=== PATIENT | male | born 1955 | race Caucasian/White ===

== ENCOUNTER → 2017-09-22 14:31 | Outpatient (CLI) | payer OTHER, MEDICAID, SELFPAY ==
--- NOTE | 2017-09-22 14:33 | DI.RAD.S_ITS ---
PROCEDURE: XR LUMBAR SPINE 2-3V INDICATIONS: lumbar pain with right sciatic pain TECHNIQUE: 3 views of the lumbar spine were acquired. COMPARISON: None. FINDINGS: Bones: 5 [id number] vertebrae are present. There is multilevel trace retrolisthesis throughout the lumbar spine. Small anterior osteophytes are present at L1, L2 and L4. There is trace endplate wedging at L1. No priors are available for comparison. Mild multilevel disc space narrowing is present moderate to severe at L1-2 and moderate at L4-5. Moderate to severe foraminal narrowing is present at L5-S1. No vertebral body compression fractures. No suspicious bony lesions. Soft tissues: Overlying bowel gas pattern is normal. No suspicious soft tissue calcifications. IMPRESSION: Prominent multilevel degenerative changes as above. Dictated by: Caren Petersen M.D. on 09/22/2017 at 16:15 Approved by: Caren Petersen M.D. on 09/22/2017 at 16:17
== END ==
PROVIDERS: Family Provider Physician Assistant; PCP Physician Assistant; Visit Provider Physician Assistant
DX: M51.36 Other intervertebral disc degeneration, lumbar region (principal)
CPT/HCPCS: 72100

== ENCOUNTER → 2020-01-24 11:40 | Outpatient (CLI) | payer MEDICARE, SELFPAY | PROVIDERS: PCP Nurse Practitioner Family; Visit Provider Physician Assistant | DX: L02.91 Cutaneous abscess, unspecified (principal) | CPT/HCPCS: 87070; 87077; 87147; 87205 ==

== ENCOUNTER → 2021-01-18 08:29 | Outpatient (CLI) | payer MEDICARE, SELFPAY ==
[2021-01-18 09:09] LABS: Hematocrit 44.9 % (41-53); Hemoglobin 14.8 g/dL (13.5-17.5); Mean Corpuscular HGB Conc 32.9 % (30-36); Mean Corpuscular Hemoglobin 32.3 PG (26-34); Mean Corpuscular Volume 98.2 fL (80-100); Platelet Count 309 X10^3/uL (150-400); Red Blood Cell Count 4.57 X10^6/uL (4.5-5.9); Red Cell Distribution Width 13.8 % (11.6-14.8); White Blood Cell Count 7.6 X10^3/uL (4.5-11.0)
[2021-01-18 10:08] LABS: Alanine Aminotransferase 25 IU/L (<50); Albumin 4.2 g/dL (3.5-5.0); Albumin Globulin Ratio 1.4 (1.0-2.8); Alkaline Phosphatase 95 U/L (38-126); Aspartate Aminotransferase 25 IU/L (17-59); BUN Creatinine Ratio 11.5 (6-22); Bilirubin Total 0.8 mg/dL (0.2-1.3); Blood Urea Nitrogen 12 mg/dL (9-20); Calcium 9.9 mg/dL (8.4-10.2); Carbon Dioxide 28 mmol/L (22-32); Chloride 105 mmol/L (98-107); Cholesterol 194 mg/dL (140-199); Estimated Glomerular Filt Rate > 60.0 mL/min (>60); Globulin 3.1 g/dL (1.7-4.1); Glucose 112 mg/dL (80-110); HDL Cholesterol 28 mg/dL (40-60); HEMOLYSIS < 15 (0-50); LDL Cholesterol Calculated 132 mg/dL (<100); Potassium 4.7 mmol/L (3.4-5.1); Sodium 140 mmol/L (137-145); Total Protein 7.3 g/dL (6.3-8.2); Triglycerides 168 mg/dL (35-150)
== END ==
PROVIDERS: PCP Nurse Practitioner Family; Referring Provider Nurse Practitioner Family; Visit Provider Nurse Practitioner Family
DX: Z00.00 Encounter for general adult medical examination without abnormal findings (principal); Z72.0 Tobacco use; Z13.6 Encounter for screening for cardiovascular disorders; Z85.9 Personal history of malignant neoplasm, unspecified
CPT/HCPCS: 36415; 80053; 80061; 85027

== ENCOUNTER → 2022-05-27 10:02 | Outpatient (CLI) | payer MEDICARE, SELFPAY ==
[2022-05-27 11:05] LABS: Alanine Aminotransferase 25 IU/L (<50); Albumin 4.3 g/dL (3.5-5.0); Albumin Globulin Ratio 1.3 (1.0-2.8); Alkaline Phosphatase 101 U/L (38-126); Aspartate Aminotransferase 24 IU/L (17-59); BUN Creatinine Ratio 12.7 (6-22); Bilirubin Total 0.5 mg/dL (0.2-1.3); Blood Urea Nitrogen 13 mg/dL (9-20); Calcium 9.9 mg/dL (8.4-10.2); Carbon Dioxide 26 mmol/L (22-32); Chloride 103 mmol/L (98-107); Cholesterol 208 mg/dL (140-199); Estimated Glomerular Filt Rate > 60 mL/min (>60); Globulin 3.3 g/dL (1.7-4.1); Glucose 118 mg/dL (80-110); HDL Cholesterol 33 mg/dL (40-60); HEMOLYSIS < 15 (0-50); LDL Cholesterol Calculated 152 mg/dL (<100); Potassium 4.3 mmol/L (3.4-5.1); Sodium 140 mmol/L (137-145); Total Protein 7.6 g/dL (6.3-8.2); Triglycerides 116 mg/dL (35-150)
[2022-05-27 11:32] LABS: Prostate Specific Antigen Scrn 3.61 ng/mL (0.1-4.0)
[2022-05-27 11:52] LABS: Hep C Virus Ab w/Reflex Quant NEGATIVE s/c (NEGATIVE)
== END ==
PROVIDERS: PCP Nurse Practitioner; Referring Provider Nurse Practitioner; Visit Provider Nurse Practitioner
DX: E78.2 Mixed hyperlipidemia (principal); Z12.5 Encounter for screening for malignant neoplasm of prostate; Z13.1 Encounter for screening for diabetes mellitus; Z11.59 Encounter for screening for other viral diseases
CPT/HCPCS: 36415; 80053; 80061; 86803; G0103

== ENCOUNTER 2024-01-07 16:15 | Emergency (ER) | payer MEDICARE, SELFPAY ==
[2024-01-07] VITALS (12 sets, daily range): BP systolic 158–233; BP diastolic 74–128; PULSE 51–80; RESP 15–26; TEMP 36.3–36.6; O2SAT 95–98; BMI 35.4
--- NOTE | 2024-01-07 16:30 | DI.RAD.S_ITS ---
PROCEDURE: XR CHEST 1V INDICATIONS: chest pain TECHNIQUE: One view of the chest was acquired. COMPARISON: None. FINDINGS: Surgical changes and devices: None. Lungs and pleura: Lungs are clear. No pleural effusions or pneumothorax. Mediastinum: Mediastinal contours appear normal. Heart size is normal. Bones and chest wall: No suspicious bony lesions. Overlying soft tissues appear unremarkable. IMPRESSION: No acute cardiopulmonary abnormality is seen. Dictated by: Andres Crawford M.D. on 01/07/2024 at 17:20 Approved by: Andres Crawford M.D. on 01/07/2024 at 17:20
--- NOTE | 2024-01-07 16:41 | PC.NURSE ---
Pt reports he took 2 ASA this morning but is unable to tell this RN the dosages
--- NOTE | 2024-01-07 16:47 | EKG_ITS ---
[address] [address] Test Date: 2024-01-07 Pat Name: Kt Maya Department: [facility] Room: Gender: Male Automatic Buffer: CORY : 1955 Requested By: Order Number: [id number] Reading MD: Maikol Mcdaniels Measurements Intervals [place] Rate: 71 P: 92 FL: 236 QRS: -18 QRSD: 148 T: -6 QT: 396 QTc: 430 Interpretive Statements Sinus rhythm with 1st degree AV block with occasional premature ventricular complexes Right bundle branch block Inferior infarct , age undetermined Electronically Signed On 01-08-2024 17:57:38 PDT by Maikol Mcdaniels
[2024-01-07 16:50] LABS: Add Manual Diff / Slide Review NO; Basophils Absolute Auto 100 /uL (0-100); Basophils Percent Auto 1.3 % (0-2); Eosinophils Absolute Auto 200 /uL (0-450); Eosinophils Percent Auto 1.5 % (2-4); Hematocrit 43.4 % (41-53); Hemoglobin 14.6 g/dL (13.5-17.5); Lymphocytes Absolute Auto 1500 /uL (1100-4500); Mean Corpuscular HGB Conc 33.8 % (30-36); Mean Corpuscular Volume 94.8 fL (80-100); Monocytes Absolute Auto 800 /uL (0-900); Monocytes Percent Auto 8.3 % (3-14); Neutrophils Absolute Auto 7500 /uL (1500-7000); Neutrophils Percent Auto 73.9 % (50-75); Platelet Count 317 X10^3/uL (150-400); Red Blood Cell Count 4.57 X10^6/uL (4.5-5.9); Red Cell Distribution Width 15.2 % (11.6-14.8); White Blood Cell Count 10.1 X10^3/uL (4.5-11.0)
[2024-01-07 16:54] LABS: Prothrombin Time 11.3 SECONDS (9.4-12.5)
[2024-01-07 16:57] LABS: PTT Partial Thromboplastin Tim 38 SECONDS (25.1-36.5)
[2024-01-07 17:00] LABS: Alanine Aminotransferase 19 IU/L (<50); Albumin 4.1 g/dL (3.5-5.0); Albumin Globulin Ratio 1.2 (1.0-2.8); Alkaline Phosphatase 108 U/L (38-126); Aspartate Aminotransferase 38 IU/L (17-59); BUN Creatinine Ratio 10.2 (6-22); Bilirubin Total 0.6 mg/dL (0.2-1.3); Blood Urea Nitrogen 11 mg/dL (9-20); Carbon Dioxide 25 mmol/L (22-32); Chloride 104 mmol/L (98-107); Creatine Kinase 96 U/L (55-170); Estimated Glomerular Filt Rate > 60 mL/min (>60); Globulin 3.4 g/dL (1.7-4.1); Glucose 122 mg/dL (80-110); HEMOLYSIS 24 (0-50); Lipase 73 U/L (23-300); Potassium 4.4 mmol/L (3.4-5.1); Sodium 136 mmol/L (137-145); Total Protein 7.5 g/dL (6.3-8.2)
[2024-01-07 17:12] LABS: NT-proBNP (BNP-Adult 18+) 125 pg/mL (<125); Troponin I < 0.012 ng/mL (0.01-0.034)
--- NOTE | 2024-01-07 19:19 | ED_ITS ---
HPI - Chest Pain General Chief Complaint: Chest Pain Stated Complaint: high BP, sent by 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 Patient went to the dentist day had 2 readings 179/149 and 199/130. Was told that he should follow up with his primary care. Called primary care who states if he has chest pain he should come to the ER. He notes that he has had chest discomfort on and off for the last several months. He describes it as possibly weekly or more frequently. He states not every single day. States it does not seem to be associated with any particular activity describes it as substernal sometimes radiates to the arms. Patient states sometimes we will feel short of breath sometimes not. No clamminess or diaphoresis no nausea or vomiting, no swelling in his extremities. No syncope. States he has not on any prescription medications. Has a history of cancer had a resection of the Reggie neck. Had radiation, did have 2 rounds of chemotherapy which was then stopped. No known drug allergies. Does use tobacco intermittently. Drinks about 1-2 6 packs weekly of alcohol. No recreational drugs. His primary care is Serina Shukla. Related Data Home Medications Medication Instructions Recorded Confirmed aspirin 81 mg tablet,delayed 81 mg PO DAILY 06/05/22 06/05/22 release (Adult Aspirin Regimen) Previous Rx's Medication Instructions Recorded nicotine (polacrilex) 4 mg gum 4 mg buccal Q2H #40 ea 05/27/22 (Nicorette) nicotine 21 mg/24 hr daily 1 patch transdermal DAILY #28 ea 05/27/22 transdermal patch Allergies Allergy/AdvReac Type Severity Reaction Status Date / Time No Known Allergies Allergy Uncoded 05/27/22 09:23 Review of Systems Review of Systems ROS Unobtainable: All systems reviewed & are unremarkable except as noted in HPI and below Patient History Medical History Elevated fasting glucose Tobacco use disorder Mixed hyperlipidemia (12/2020) History of cancer Breast cancer (~2016) Encounter for smoking cessation counseling Cancer (~04/2016) Impotence (Unknown) Hypertension (Unknown) Surgical History History of neck surgery (~2017) Family History Father Colon cancer Social History Smoking Status: Current every day smoker Smoking Status: Current every day smoker alcohol intake frequency: a few times a week Substance Use Type: does not use Exam Narrative Exam Narrative: GENERAL: Alert and oriented x three, male in mild distress. HEENT: Head normocephalic, atraumatic, EOMI, pupils reactive, face symmetric, moist mucous membranes NECK: Supple, full range of motion, patient has scarring of the right neck consistent with prior treatments. CARDIOVASCULAR: Regular rate and rhythm without murmurs, rubs or gallops. No edema bilateral lower extremities. RESPIRATORY: Breath sounds equal bilaterally, no wheezes rales or rhonchi. No tachypnea or accessory muscle use. ABDOMEN: Soft, nontender. Normoactive bowel sounds all 4 quadrants. No guarding or rebound, rigidity, no mass : No CVA tenderness EXTREMITIES: Normal range of motion, no clubbing or edema. Neurovascularly intact NEUROLOGICAL: Cranial nerves II through XII grossly intact. Moving all extremities SKIN: Warm, dry, no petechiae, no rashes or lesions. Initial Vital Signs Initial Vital Signs: Vital Signs Temperature 98 F 01/07/24 16:21 Pulse Rate 74 01/07/24 16:21 Respiratory Rate 16 01/07/24 16:21 Blood Pressure 233/103 H 01/07/24 16:21 Pulse Oximetry 95 01/07/24 16:21 Oxygen Delivery Method Room Air 01/07/24 16:21 Course Orders Ordered: ED Orders 01/07/24 18:47 Trop I [Troponin I] Stat 01/07/24 19:31 EKG-12 Lead Stat Discontinued Medications Aspirin (Aspirin 81 Mg Chew Tab) 324 mg PO NOW ONE Stop: 01/07/24 16:31 Last Admin: 01/07/24 19:06 Dose: Not Given Documented By: RLS Vital Signs Vital signs: Vital Signs - 8 hr 01/07/24 19:30 01/07/24 19:30 01/07/24 20:00 Temperature Pulse Rate 57 L 51 L Blood Pressure 174/102 H Pulse Oximetry 97 97 Oxygen Delivery Method Room Air 01/07/24 20:00 01/07/24 20:09 Temperature 97.4 F L Pulse Rate Blood Pressure 187/122 H Pulse Oximetry Oxygen Delivery Method MDM - Chest Pain Lab Data 01/07/24 16:31 01/07/24 16:31 Labs: Lab Results 01/07/24 01/07/24 Range/Units 16:31 18:47 WBC 10.1 (4.5-11.0) X10^3/uL RBC 4.57 (4.5-5.9) X10^6/uL Hgb 14.6 (13.5-17.5) g/dL Hct 43.4 (41-53) % MCV 94.8 (80-100) fL MCH 32.0 (26-34) PG MCHC 33.8 (30-36) % RDW 15.2 H (11.6-14.8) % Plt Count 317 (150-400) X10^3/uL Neut % (Auto) 73.9 (50-75) % Lymph % (Auto) 15.0 L (25-40) % [place] % (Auto) 8.3 (3-14) % Eos % (Auto) 1.5 L (2-4) % Baso % (Auto) 1.3 (0-2) % Neut # (Auto) 7500 H (6177-4445) /uL Lymph # (Auto) 1500 (2776-5530) /uL [place] # (Auto) 800 (0-900) /uL Eos # (Auto) 200 (0-450) /uL Baso # (Auto) 100 (0-100) /uL PT 11.3 (9.4-12.5) SECONDS INR 1.0 (0.9-1.3) APTT 38 H (25.1-36.5) SECONDS Sodium 136 L (137-145) mmol/L Potassium 4.4 (3.4-5.1) mmol/L Chloride 104 (98-107) mmol/L Carbon Dioxide 25 (22-32) mmol/L BUN 11 (9-20) mg/dL Creatinine 1.08 (0.66-1.25) mg/dL Estimated GFR > 60 (>60) mL/min BUN/Creatinine Ratio 10.2 (6-22) Glucose 122 H (80-110) mg/dL Calcium 10.0 (8.4-10.2) mg/dL Magnesium 2.0 (1.6-2.3) mg/dL Total Bilirubin 0.6 (0.2-1.3) mg/dL AST 38 (17-59) IU/L ALT 19 (<50) IU/L Alkaline Phosphatase 108 (38-126) U/L Total Creatine Kinase 96 (55-170) U/L Troponin I < 0.012 < 0.012 (0.01-0.034) ng/mL NT-Pro-B Natriuret Pep 125 H (<125) pg/mL Total Protein 7.5 (6.3-8.2) g/dL Albumin 4.1 (3.5-5.0) g/dL Globulin 3.4 (1.7-4.1) g/dL Albumin/Globulin Ratio 1.2 (1.0-2.8) Lipase 73 (23-300) U/L Imaging Data Chest x-ray: Radiologist's Impression: Kt Maya??68??M??1955 ? Allergy/Adv: [No Known Allergies] Close Chest X-Ray (Signed) Andres Crawford - 01/07/24 Lumbar Spine X-Ray (Signed) Caren Petersen - 09/22/17 [address]?[place] [address] XRay Report Signed Patient: Kt Maya MR#: [id number] : 1955 Acct:[id number] Age/Sex: 68 / M Date of Service: 01/07/24 Loc: ED Accession Number: [id number] Procedure: XR chest 1V Ordering Provider: Rupa Aldridge D.O. PROCEDURE: XR CHEST 1V INDICATIONS: chest pain TECHNIQUE: One view of the chest was acquired. COMPARISON: None. FINDINGS: Surgical changes and devices: None. Lungs and pleura: Lungs are clear. No pleural effusions or pneumothorax. Mediastinum: Mediastinal contours appear normal. Heart size is normal. Bones and chest wall: No suspicious bony lesions. Overlying soft tissues appear unremarkable. IMPRESSION: No acute cardiopulmonary abnormality is seen. Dictated by: Andres Crawford M.D. on 01/07/2024 at 17:20 Approved by: Andres Crawford M.D. on 01/07/2024 at 17:20 ECG Data Attestation: I personally reviewed and interpreted this ECG as follows: Prior ECG tracings: not available for review Interpretation: EKG shows sinus rhythm with first-degree AV block, right bundle-branch block, rate of 71, P are 236 QRS of 148 QTC of 430. EKG 2. Shows sinus bradycardia with first-degree AV block right bundle-branch, rate of 54 MD 246 QRS of 146 QTC of 402, patient's EKG appears similar to prior from earlier today no dynamic changes. MDM Narrative Medical decision making narrative: 68-year-old male with complaint of chest pain sent because he was hypertensive at the dentist. Patient notes comes and goes he has not had any today last episode was last night. He does have risk factors with tobacco use and age. Patient patient is hypertensive here. He is adamant that he does not want prescription medication. Unclear if his chest discomfort is possibly from hypertensive urgency versus coronary artery disease but is describing what sounds like angina. Patient also states he does not wish to spend the night and have observation and stress testing tomorrow. His is leaving town tomorrow. He is open to outpatient follow up with his primary care. Labs show white count of 10 hemoglobin of 14.6 platelets of 317. PTT is 38 INR is 1. Sodium is 136 electrolytes are otherwise appropriate glucose is 122 BUN 11 with a creatinine 1.08, LFTs are negative troponins less than 0.012 with a BNP of 125 and a lipase is 73. Repeat troponin is less than 0.012 Chest x-ray shows no acute change. EKG shows sinus rhythm with first-degree AV block, right bundle-branch block, rate of 71, MD 236 QRS of 148 QTC of 430. No prior for comparison. EKG shows no dynamic changes. Spoke with Dr. Vasquez, covering patient is establishing in February [address] Desai. He will reach out to them to help make sure patient has a follow up call tomorrow to facilitate follow up as I think patient needs stress testing and workup. We would also discussed he has not open to starting medication today and that I do think he is high-risk but he has not willing to stay overnight for observation. Discharge Plan Departure Patient Disposition: Home Clinical Impression: Hypertension, Chest pain Instructions: DI for Chest Pain Activity Restrictions/Additional Instructions: You has been describing what sounds like angina or chest pain. This could be related to your elevated blood pressure but I do think you should have stress testing. As you have elected to return home rather than stay overnight for observation please call tomorrow morning to set up an appointment and testing. I reached out to the on-call physician to help facilitate this but do need to call tomorrow morning to set up an appointment. Please return if you have recurrent chest pain, shortness of breath, lightheadedness or passing out, persistent pain, sweatiness or other new or concerning changes. Prescriptions: No Action nicotine 21 mg/24 hr patch 24 hour 1 patch transdermal DAILY Qty: 28 4RF nicotine (polacrilex) [Nicorette] 4 mg gum 4 mg buccal Q2H Qty: 40 2RF aspirin [Adult Aspirin Regimen] 81 mg tablet,delayed release (DR/EC) 81 mg PO DAILY Referrals: Serina Shukla ARNP [Primary Care Provider] - Gricelda Anderson MD [Physician] - Stand Alone Forms: Patient Portal/API
[2024-01-07 19:28] LABS: Troponin I < 0.012 ng/mL (0.01-0.034)
--- NOTE | 2024-01-07 19:48 | EKG_ITS ---
[address] [address] Test Date: 2024-01-07 Pat Name: Kt Maya Department: [facility] Room: Gender: Male Resort Host: ESME : 1955 Requested By: Order Number: [id number] Reading MD: Maikol Mcdaniels Measurements Intervals [place] Rate: 54 P: 37 OR: 246 QRS: 0 QRSD: 146 T: 0 QT: 424 QTc: 402 Interpretive Statements Sinus bradycardia with 1st degree AV block Right bundle branch block Electronically Signed On 01-08-2024 17:58:57 PDT by Maikol Mcdaniels
== END 2024-01-07 20:11 | disposition home or self-care (01) ==
PROVIDERS: Emergency Medicine; Emergency Provider Emergency Medicine; PCP Nurse Practitioner
DX: I10 Essential (primary) hypertension (principal); R07.9 Chest pain, unspecified; R00.1 Bradycardia, unspecified; I44.0 Atrioventricular block, first degree; I45.10 Unspecified right bundle-branch block
CPT/HCPCS: 36415; 71045; 80053; 82550; 83690; 83735; 83880; 84484; 85025; 85610; 85730; 93005; 99283; 99284

== ENCOUNTER → 2024-02-03 07:42 | Outpatient (CLI) | payer MEDICARE, SELFPAY ==
--- NOTE | 2024-02-03 18:48 | DI.NM.S_ITS ---
DATE OF SERVICE: 02/03/2024 EXERCISE STRESS TEST INDICATIONS: Chest pain. CARDIAC STRESS: The patient underwent exercise stress test under the supervision of an attending staff. He walked on Josep protocol for 6 minutes, achieved 7 METs of workload, maximum heart rate 140 which was 93% of target heart rate with CLEM positive 13%. Resting blood pressure 150/80 and peak blood pressure 202/102 mmHg. Baseline rhythm is sinus with right bundle-branch block. During exercise, the patient has intermittent PVCs and couplets without any ventricular tachycardia. There were some nonspecific ST-T changes without any typical convincing ischemic changes. No chest pain. The patient has bilateral calf pain. CONCLUSION: Exercise stress test showed some nonspecific ST-T changes with underlying right bundle-branch block without any typical ischemic changes. Intermittent PVCs with couplets without any ventricular tachycardia. Diminished exercise tolerance. Hypertensive blood pressure response. No chest pain, but had bilateral calf pain. Consider repeating exercise stress test with imaging modality like exercise stress echo or exercise perfusion study. Also consider workup to rule out PAD. Hypertensive blood pressure response and peak blood pressure was 202/102 mmHg. Kt Maya - GYPS[employer]TER/zachary/[place] doc#: [id number]/job#: [id number] dd: 02/03/2024 16:50:00 dt: 02/03/2024 18:33:00 DICTATING /COPIES TO: Russ Pablo MD COPIES MNE: HERNANDEZ;
== END ==
PROVIDERS: PCP Student in an Organized Health Care Education/Training Program; Referring Provider Student in an Organized Health Care Education/Training Program; Visit Provider Student in an Organized Health Care Education/Training Program
DX: I20.89 Other forms of angina pectoris (principal); I45.10 Unspecified right bundle-branch block
CPT/HCPCS: 93017

== ENCOUNTER → 2024-06-16 12:44 | Outpatient (CLI) | payer MEDICARE, SELFPAY ==
--- NOTE | 2024-06-16 12:45 | DI.US.S_ITS ---
PROCEDURE: US ARTERIAL DUPLEX LE BI INDICATIONS: Chest pain, peripheral vascular disease TECHNIQUE: Color and pulse Doppler interrogation was performed of both lower extremity arterial systems, with image documentation. COMPARISON: None. FINDINGS: Right lower extremity: Common femoral artery: 168.4 cm/sec, with monophasic flow. Deep femoral artery: 191.5 cm/sec, with monophasic flow. Proximal superficial femoral artery: 122.2 cm/sec, with monophasic flow. Mid superficial femoral artery: 300.8 cm/sec, with monophasic flow. Distal superficial femoral artery: 138.8 cm/sec, with monophasic flow. Popliteal artery: 109.3 cm/sec, with biphasic flow. Posterior tibial artery: 77.3 cm/sec, with monophasic flow. Anterior tibial artery/dorsalis pedis: 47.3 cm/sec, with monophasic flow. Day-scale imaging description: Mild scattered atheromatous disease Left lower extremity: Common femoral artery: 140.7 cm/sec, with monophasic flow. Deep femoral artery: 217.7 cm/sec, with monophasic flow. Proximal superficial femoral artery: 128.5 cm/sec, with monophasic flow. Mid superficial femoral artery: 107.4 cm/sec, with monophasic flow. Distal superficial femoral artery: 237.2 cm/sec, with biphasic flow. Popliteal artery: 65.3 cm/sec, with monophasic flow. Posterior tibial artery: 84.8 cm/sec, with monophasic flow. Anterior tibial artery/dorsalis pedis: 52.8 cm/sec, with monophasic flow. Day-scale imaging description: Mild scattered atheromatous disease IMPRESSION: Right * 50-99% stenosis of the right mid superficial femoral artery. * 20-49% stenosis of the right common femoral artery, deep femoral artery, distal superficial femoral artery, and popliteal artery. * 1-19% stenosis of the right proximal superficial femoral artery and posterior tibial artery. Left * 50-99% stenosis of the left deep femoral artery and distal superficial femoral artery. * 20-49% stenosis of the left common femoral artery, proximal and mid superficial femoral artery. * 1-19% stenosis of the left proximal and mid superficial femoral arteries and posterior tibial artery. Dictated by: Pollo Cannon M.D. on 06/17/2024 at 18:22 Approved by: Pollo Cannon M.D. on 06/17/2024 at 18:29
--- NOTE | 2024-06-16 12:45 | DI.ECHO.S_ITS ---
[facility] : : [address] : : [place] : : [address] : : Phone: [phone] Echocardiogram Report + + :Name: ANIL DURAND Study Date: 06/16/2024 Height: 70 in : :[facility] ReadingLocation: Weight: 250 lb: : Gender: Male BSA: 2.3 m2 : :: 1955 Age: 69 yrs : :Reason For Study: CHEST PAIN : :Ordering Physician: JOSE JUAN, : :VANCE Performed By: Rory García : :Referring: VANCE PATEL : + + Interpretation Summary The ejection fraction is estimated to be 55-60%. There is mild aortic regurgitation. There is trace tricuspid regurgitation. There is trace mitral regurgitation. The ascending aorta is mildly enlarged. Procedure: A two-dimensional transthoracic echocardiogram with color flow and Doppler was performed. The study quality was technically good. There is no prior echocardiogram noted for this patient. The patient was in normal sinus rhythm during the exam. Left Ventricle: The left ventricle is normal in size. Left ventricular wall thickness is mildly increased. There is no ventricular septal defect visualized. The ejection fraction is estimated to be 55-60%. There are no focal wall motion abnormalities. Diastolic parameters suggest probable normal left ventricular diastolic function and normal filling pressures. Right Ventricle: The right ventricle is mildly dilated. The right ventricular systolic function is normal. Atria: The left atrial size is normal. Right atrial size is normal. The interatrial septum grossly appears intact with no obvious evidence for an atrial septal defect. Mitral Valve: The mitral valve leaflets appear normal. There is no evidence of stenosis, fluttering, or prolapse. There is trace mitral regurgitation. Aortic Valve: The aortic valve is trileaflet. The aortic valve opens well. There is mild aortic regurgitation. Tricuspid Valve: The tricuspid valve leaflets are thin and pliable. There is trace tricuspid regurgitation. Pulmonic Valve: The pulmonic valve is not well seen, but is grossly normal. There is no pulmonic valvular regurgitation. Great Vessels: The aortic root is mildly dilated. The ascending aorta is mildly enlarged. The pulmonary artery is normal size. The inferior vena cava was not visualized. Pericardium/ Pleura There is no pericardial effusion. MMode/2D Measurements & Calculations LVIDd: 5.4 cm LVOT diam: 2.3 cm LVIDs: 3.5 cm Ao root diam: 4.1 cm FS: 35.9 % asc Aorta Diam: 3.7 cm EPSS: 0.92 cm IVSd: 1.3 cm LVPWd: 1.2 cm LV staples. diameter/BSA (cm/m^2): 2.4 LV sys. diameter/BSA (cm/m^2): 1.5 LA A2 area: 18.7 cm2 RA long axis: 5.4 cm LA A4 area: 20.4 cm2 RA area: 17.3 cm2 LA length (vol): 6.0 cm RA vol: 46.8 ml LA vol: 54.0 ml RA : 20.4 ml/m2 LA vol index: 23.5 ml/m2 RVD1 (basal): 4.0 cm RVD2 (mid): 3.3 cm TAPSE: 2.8 cm Doppler Measurements & Calculations Ao V2 max: 148.5 cm/sec LVOT Max Leo: 90.6 cm/sec Ao V2 mean: 101.2 cm/sec LV V1 max P.3 mmHg Ao max P.8 mmHg LV V1 VTI: 23.2 cm Ao mean P.6 mmHg STANLEY(I,D): 2.9 cm2 Ao V2 VTI: 32.7 cm STANLEY(V,D): 2.5 cm2 sev ratio: 0.71 STANLEY indexed to BSA (cm^2/m^2): 1.3 MV E max leo: 76.7 cm/sec TR max leo: 239.5 cm/sec MV A max leo: 69.5 cm/sec TR max P.9 mmHg MV E/A: 1.1 PA V2 max: 82.2 cm/sec Med Peak E' Leo: 5.5 cm/sec PA V2 mean: 55.3 cm/sec E/E' med: 13.9 PA mean P.4 mmHg Lat Peak E' Leo: 9.4 cm/sec PA pr(Accel): 24.2 mmHg E/E' lat: 8.2 E/e' average: 11.0 MV dec time: 0.16 sec SV(LVOT): 96.4 ml Reading Physician:03:14 PM
== END ==
PROVIDERS: PCP Student in an Organized Health Care Education/Training Program; Referring Provider Internal Medicine Cardiovascular Disease; Visit Provider Internal Medicine Cardiovascular Disease
DX: I73.9 Peripheral vascular disease, unspecified (principal); R07.9 Chest pain, unspecified; I35.1 Nonrheumatic aortic (valve) insufficiency; I77.89 Other specified disorders of arteries and arterioles; I77.810 Thoracic aortic ectasia
CPT/HCPCS: 93306; 93925

== ENCOUNTER → 2024-07-08 09:40 | Outpatient (CLI) | payer MEDICARE, SELFPAY ==
[2024-07-08 11:55] LABS: BUN Creatinine Ratio 12.7 (6-22); Blood Urea Nitrogen 17 mg/dL (9-20); Calcium 10.3 mg/dL (8.4-10.2); Carbon Dioxide 26 mmol/L (22-32); Chloride 104 mmol/L (98-107); Estimated Glomerular Filt Rate 57 mL/min (>60); Glucose 132 mg/dL (80-110); HEMOLYSIS < 15 (0-50); Potassium 4.9 mmol/L (3.4-5.1); Sodium 137 mmol/L (137-145)
== END ==
PROVIDERS: PCP Student in an Organized Health Care Education/Training Program; Referring Provider Internal Medicine Cardiovascular Disease; Visit Provider Internal Medicine Cardiovascular Disease
DX: R07.9 Chest pain, unspecified (principal)
CPT/HCPCS: 36415; 80048

== ENCOUNTER → 2024-09-30 13:47 | Outpatient (CLI) | payer MEDICARE, SELFPAY ==
--- NOTE | 2024-09-30 13:48 | DI.RAD.S_ITS ---
PROCEDURE: XR CHEST 2V INDICATIONS: Persistent cough TECHNIQUE: 2 views of the chest were acquired. COMPARISON: [facility], CR, XR CHEST 1V, 01/07/2024, 16:49. FINDINGS: Surgical changes and devices: None. Lungs and pleura: Lungs are clear. No pleural effusions or pneumothorax. Mediastinum: Mediastinal contours are normal. Heart size is normal. Bones and chest wall: No suspicious bony abnormalities. Soft tissues appear unremarkable. IMPRESSION: No acute cardiopulmonary abnormality is seen. Dictated by: Andrew Das M.D. on 09/30/2024 at 23:14 Approved by: Andrew Das M.D. on 09/30/2024 at 23:15
== END ==
PROVIDERS: PCP Student in an Organized Health Care Education/Training Program; Referring Provider Family Medicine; Visit Provider Family Medicine
DX: R05.9 Cough, unspecified (principal)
CPT/HCPCS: 71046

== ENCOUNTER 2025-03-30 19:59 | Emergency (ER) | payer MEDICARE, SELFPAY ==
[2025-03-30] VITALS (12 sets, daily range): BP systolic 158–192; BP diastolic 72–101; PULSE 72–98; RESP 17–28; O2SAT 93–95; BMI 29.9
[2025-03-30] MEDS: ALBUTEROL 2.5 MG/3 ML NEB (ADULT) 5 MG INH (20:11)
[2025-03-30] MEDS: methylPREDNISolone succ 125 MG/2 ML VIAL IV (20:25)
[2025-03-30 20:36] LABS: Add Manual Diff / Slide Review NO; Hematocrit 42.0 % (41-53); Hemoglobin 14.2 g/dL (13.5-17.5); Lymphocytes Absolute Auto 1500 /uL (1100-4500); Mean Corpuscular HGB Conc 33.7 % (30-36); Mean Corpuscular Hemoglobin 31.7 PG (26-34); Mean Corpuscular Volume 94.0 fL (80-100); Platelet Count 350 X10^3/uL (150-400)
[2025-03-30 20:47] LABS: Alanine Aminotransferase 21 IU/L (<50); Albumin 4.5 g/dL (3.5-5.0); Albumin Globulin Ratio 1.3 (1.0-2.8); Alkaline Phosphatase 118 U/L (38-126); Blood Urea Nitrogen 13 mg/dL (9-20); Calcium 9.9 mg/dL (8.4-10.2); Carbon Dioxide 23 mmol/L (22-32); Chloride 106 mmol/L (98-107); Estimated Glomerular Filt Rate > 60 mL/min (>60); Globulin 3.4 g/dL (1.7-4.1); Glucose 137 mg/dL (70-99); HEMOLYSIS < 15 (0-50); Potassium 4.3 mmol/L (3.4-5.1); Sodium 138 mmol/L (137-145); Total Protein 7.9 g/dL (6.3-8.2)
--- NOTE | 2025-03-30 20:50 | ED.SOB ---
HPI - SOB/Dyspnea General Chief Complaint: Shortness of Breath/Dyspnea Stated Complaint: Hard time breathing Time Seen by Provider: 03/30/25 20:07 Source: patient Mode of arrival: Ambulatory History of Present Illness HPI Narrative: Patient is a 69-year-old male presenting today with difficulty breathing. He reports that he is mixing drain no and Clorox to help unclogged a sink started having some difficulty breathing and chest tightness. No prior history of COPD or asthma. No rash no angioedema Related Data Home Medications ?Medication ?Instructions ?Recorded ?Confirmed aspirin 81 mg tablet,delayed 81 mg PO DAILY 06/05/22 09/30/24 release (Adult Aspirin Regimen) hydrochlorothiazide 12.5 mg tablet 12.5 mg PO DAILY 08/18/24 09/30/24 lisinopril 10 mg tablet 10 mg PO DAILY 08/18/24 09/30/24 Previous Rx's ?Medication ?Instructions ?Recorded cetirizine 10 mg tablet 10 mg PO DAILY #90 tabs 09/23/24 fluticasone propionate 50 1 spray intranasal BID #16 grams 09/23/24 mcg/actuation nasal spray,suspension (Allergy Relief (fluticasone)) amoxicillin 875 mg-potassium 1 tab PO BID #20 tabs 09/30/24 clavulanate 125 mg tablet prednisone 20 mg tablet 20 mg PO DAILY #3 tabs 03/30/25 Allergies Allergy/AdvReac Type Severity Reaction Status Date / Time No Known Allergies Allergy Uncoded 09/30/24 13:24 Patient History Medical History Elevated fasting glucose Tobacco use disorder Mixed hyperlipidemia (12/2020) History of cancer Breast cancer (~2016) Encounter for smoking cessation counseling Cancer (~04/2016) Impotence (Unknown) Hypertension (Unknown) Surgical History History of neck surgery (~2016) Family History Father Colon cancer Social History Smoking Status: Current some day smoker Smoking Status: Current some day smoker tobacco type: cigarettes alcohol intake frequency: a few times a week Exam Initial Vital Signs Initial Vital Signs: Vital Signs Pulse Rate 98 H 03/30/25 20:07 Respiratory Rate 26 H 03/30/25 20:07 Pulse Oximetry 95 03/30/25 20:07 Oxygen Delivery Method Room Air 03/30/25 20:07 GENERAL: Alert 69-year-old male appears in mild respiratory distress and in no acute distress. HEENT: Head atraumatic,EOMI, pupils reactive, face symmetric, moist mucous membranes CARDIOVASCULAR: Regular rate and rhythm without murmurs, rubs or gallops. RESPIRATORY: Decreased breath sounds bilaterally no wheezing speaking in about 5 word sentences tachypnea ABDOMEN: Soft, nontender. Normoactive bowel sounds all 4 quadrants. No guarding or rebound. EXTREMITIES: Normal range of motion, no clubbing or edema. Neurovascularly intact NEUROLOGICAL: Alert and oriented x4.Normal gait and speech. Cranial nerves II through XII grossly intact. SKIN: Warm, dry, no laceration, no petechiae, no rashes or lesions. Course Orders Ordered: ED Orders 03/30/25 20:20 CBC Auto Diff [Complete Blood Count AUTO DIFF] Stat CMP [Comprehensive Metabolic Panel] Stat Discontinued Medications Albuterol (Albuterol 2.5 Mg/3 Ml Neb (Adult)) 5 mg INH NOW ONE Stop: 03/30/25 20:08 Last Admin: 03/30/25 20:11 Dose: 5 mg Documented By: MANSI Albuterol (Albuterol Hfa Prepack) 1 box MISC DIRECTED ONE Stop: 03/30/25 22:07 Last Admin: 03/30/25 22:25 Dose: 1 box Documented By: Methylprednisolone (Methylprednisolone Succ 125 Mg/2 Ml Vial) 125 mg IV NOW ONE Stop: 03/30/25 20:08 Last Admin: 03/30/25 20:25 Dose: 125 mg Documented By: SANJANA Vital Signs Vital signs: Vital Signs - 8 hr 03/30/25 20:07 03/30/25 20:12 03/30/25 20:15 Pulse Rate 98 H 85 89 Respiratory Rate 26 H 20 Blood Pressure Pulse Oximetry 95 95 95 Oxygen Delivery Method Room Air Room Air 03/30/25 20:30 03/30/25 20:31 03/30/25 20:31 Pulse Rate 86 Respiratory Rate Blood Pressure 192/97 H 192/97 H Pulse Oximetry 94 Oxygen Delivery Method 03/30/25 20:31 03/30/25 20:54 03/30/25 20:54 Pulse Rate 88 90 Respiratory Rate Blood Pressure 179/84 H Pulse Oximetry 94 94 Oxygen Delivery Method 03/30/25 21:00 03/30/25 21:01 03/30/25 21:01 Pulse Rate 85 85 Respiratory Rate Blood Pressure 175/101 H Pulse Oximetry 94 93 Oxygen Delivery Method 03/30/25 21:30 03/30/25 21:31 03/30/25 21:31 Pulse Rate 81 79 Respiratory Rate 17 19 Blood Pressure 171/72 H Pulse Oximetry 94 95 Oxygen Delivery Method 03/30/25 22:00 03/30/25 22:01 03/30/25 22:01 Pulse Rate 72 79 Respiratory Rate 17 28 H Blood Pressure 158/76 H Pulse Oximetry 94 95 Oxygen Delivery Method Room Air MDM - SOB/Dyspnea Lab Data 03/30/25 20:20 03/30/25 20:20 Labs: Lab Results 03/30/25 Range/Units 20:20 WBC 13.9 H (4.5-11.0) X10^3/uL RBC 4.47 L (4.5-5.9) X10^6/uL Hgb 14.2 (13.5-17.5) g/dL Hct 42.0 (41-53) % MCV 94.0 (80-100) fL MCH 31.7 (26-34) PG MCHC 33.7 (30-36) % RDW 14.6 (11.6-14.8) % Plt Count 350 (150-400) X10^3/uL Neut % (Auto) 81.1 H (50-75) % Lymph % (Auto) 10.9 L (25-40) % [place] % (Auto) 6.6 (3-14) % Eos % (Auto) 0.7 L (2-4) % Baso % (Auto) 0.7 (0-2) % Neut # (Auto) 06986 H (0145-2897) /uL Lymph # (Auto) 1500 (3054-6179) /uL [place] # (Auto) 900 (0-900) /uL Eos # (Auto) 100 (0-450) /uL Baso # (Auto) 100 (0-100) /uL Sodium 138 (137-145) mmol/L Potassium 4.3 (3.4-5.1) mmol/L Chloride 106 (98-107) mmol/L Carbon Dioxide 23 (22-32) mmol/L BUN 13 (9-20) mg/dL Creatinine 0.96 (0.66-1.25) mg/dL Estimated GFR > 60 (>60) mL/min BUN/Creatinine Ratio 13.5 (6-22) Glucose 137 H (70-99) mg/dL Calcium 9.9 (8.4-10.2) mg/dL Total Bilirubin 0.6 (0.2-1.3) mg/dL AST 29 (17-59) IU/L ALT 21 (<50) IU/L Alkaline Phosphatase 118 (38-126) U/L Total Protein 7.9 (6.3-8.2) g/dL Albumin 4.5 (3.5-5.0) g/dL Globulin 3.4 (1.7-4.1) g/dL Albumin/Globulin Ratio 1.3 (1.0-2.8) MDM Narrative Medical decision making narrative: Patient is 69-year-old male presenting to day with difficulty breathing. He is immediately given 5 mg of albuterol which does help. He was never hypoxic. He was reexamined breath sounds improve symptoms improve. He was given IV Solu-Medrol as well. Blood work has been reviewed he has mild leukocytosis but no electrolyte abnormality. Monitored in the ED did not require any further albuterol never hypoxic. Given albuterol inhaler and spacer. At this time he feels ready able to go home. He was never hypoxic. Able to ambulate in the ED without any difficulty. Discharge Plan Departure Patient Disposition: Home Clinical Impression: Acute chemical pneumonitis Instructions: DI for Reactive Airway Disease-Adult Activity Restrictions/Additional Instructions: *You have been diagnosed with reactive airway due to chemicals *What to do: At this time do not mix chemicals in her home especially in the small contained space. This is likely what caused your difficulty breathing *Continue to take medications as directed Albuterol 1-2 puffs with spacer every 4 hours if needed for shortness of breath Prednisone 20 mg once a day for 3 days *Follow up with your primary care provider in 2-3 days or call [phone] *Return to ER if you should have increased chest pain difficulty breathing 80 or any new, worsening or concerning symptoms Prescriptions: New prednisone 20 mg tablet 20 mg PO DAILY Qty: 3 0RF No Action hydrochlorothiazide 12.5 mg tablet 12.5 mg PO DAILY lisinopril 10 mg tablet 10 mg PO DAILY cetirizine 10 mg tablet 10 mg PO DAILY Qty: 90 0RF Rx Instructions: Take daily fluticasone propionate [Allergy Relief (fluticasone)] 50 mcg/actuation spray,suspension 1 spray intranasal BID Qty: 16 0RF Rx Instructions: administer into each nostril twice daily amoxicillin-pot clavulanate 875-125 mg tablet 1 tab PO BID Qty: 20 0RF aspirin [Adult Aspirin Regimen] 81 mg tablet,delayed release (DR/EC) 81 mg PO DAILY Referrals: Gricelda Anderson MD [Primary Care Provider, Family Practice] Stand Alone Forms: Patient Portal/API
[2025-03-30] MEDS: ALBUTEROL HFA PREPACK 1 BOX MISC (22:25)
== END 2025-03-30 22:59 | disposition home or self-care (01) ==
PROVIDERS: Emergency Provider Emergency Medicine; PCP Student in an Organized Health Care Education/Training Program
DX: T54.3X1A Toxic effect of corrosive alkalis and alkali-like substances, accidental (unintentional), initial encounter (principal); J68.0 Bronchitis and pneumonitis due to chemicals, gases, fumes and vapors; F17.200 Nicotine dependence, unspecified, uncomplicated
CPT/HCPCS: 80053; 85025; 94640; 96374; 99284; J2919; J7613